=== PATIENT | female | born 1950 | race Caucasian/White ===

== ENCOUNTER 2024-01-03 20:21 | Emergency (ER) | payer OTHER ==
[2024-01-03] MEDS ORDERED: Lidocaine 1% w/Epinephrine 1:200K 30 ML VIAL ONE (21:04)
[2024-01-03] MEDS ORDERED: Bacitracin 1 PK ONE (21:05)
[2024-01-03 21:53] LABS: ALT (SGPT) 56 U/L (8-55); AST (SGOT) 180 U/L (5-34); Alkaline Phosphatase 283 U/L (40-110); Anion Gap 13 mmol/L (10-20); BUN (Urea Nitrogen) 23 mg/dL (9.8-20.1); Bilirubin, Total 0.9 mg/dL (0.2-1.2); Calc. Creatinine Clearance 0 mL/min (70-130); Calcium 8.3 mg/dL (7.8-10.44); Carbon Dioxide 20 mmol/L (23-31); Chloride 107 mmol/L (98-107); Estimated GFR 16; Globulin 4.4 g/dL (2.4-3.5); Glucose 103 mg/dL (83-110); Potassium 4.6 mmol/L (3.5-5.1); Protein, Total 6.4 g/dL (5.8-8.1); Sodium 135 mmol/L (136-145)
[2024-01-03 21:58] LABS: Hematocrit 22.2 % (34.9-44.5); Mean Corpuscular HGB CONC 31.5 g/dL (32.0-36.0); Mean Corpuscular Hemoglobin 32.4 pg (27.0-33.0); Mean Corpuscular Volume 102.8 fL (81.6-98.3); Platelet Count 215 10x3/uL (150-450); RBC Distribution Width 24.1 % (11.5-14.5); Red Blood Cell (RBC) Count 2.16 10x6/uL (3.90-5.03)
[2024-01-03 22:02] LABS: Mean Platelet Volume 13.3 fL (7.4-10.4); White Blood Cell (WBC) Count 14.4 10x3/uL (3.5-10.5)
[2024-01-03 22:03] LABS: MDiff Complete? YES
[2024-01-03 22:25] LABS: Band 8 % (5-11); Eosinophils 3 % (0-10); Lymphocytes 19 % (21-51); Monocytes 7 % (0-10); Neutrophil 61 % (42-75); Nucleated RBC (Manual Ct) 1 % (0); Reactive Lymphocytes 2 % (0-10)
[2024-01-03 22:28] LABS: Hypochromia SLIGHT = 6-15 cells (100X) (0-5/hpf); Large Platelets SLIGHT (None Seen); Macrocytosis SLIGHT = 6-15 cells (100X) (0-5/hpf); Ovalocytes SLIGHT = 2-5 cells (100X) (0-1/hpf); Platelet Adequacy Comment Appears Adequate; Polychromasia SLIGHT = 2-3 cells (100X) (0-2/hpf)
[2024-01-03 22:29] LABS: Anisocytosis MODERATE=16-30 cells (100X) (0-5/hpf); Elliptocytes SLIGHT = 2-5 cells (100X) (0-1/hpf); Poikilocytosis SLIGHT = 6-15 cells (100X) (0-5/hpf); Spherocytes SLIGHT = 1-5 cells (100X) (None Seen)
[2024-01-03 22:51] LABS: INR-International Normal Ratio 1.3; PTT 39.4 sec (22.0-33.0); Prothrombin Time 14.1 sec (9.5-12.1)
[2024-01-04] MEDS ORDERED: Cephalexin 250 MG CAP ONE (03:31)
== END 2024-01-04 04:32 | disposition home or self-care (01) ==
LOC: CSHERS 20:21
DX: R58 Hemorrhage, not elsewhere classified (principal); N18.9 Chronic kidney disease, unspecified; D64.9 Anemia, unspecified; I10 Essential (primary) hypertension; I48.91 Unspecified atrial fibrillation; R54 Age-related physical debility
CPT/HCPCS: 36430; 80053; 85025; 85610; 85730; 86850; 86900; 86901; 86920; 93005; P9016; 36415; 96372; 99284